=== PATIENT | male | born 1985 | race Caucasian/White ===

== ENCOUNTER 2022-11-09 15:40 | Emergency (ER) | payer OTHER ==
--- OUTSIDE RECORDS SUMMARY | 2022-11-09 15:43 | XMS REPORT | Continuity of Care Document ---
:1985 Author Organization [facility] t Address [address] [place] [id number] Care Team Providers Name Role Phone DR BLAKE BLANCO Attending Clinician Unavailable DR JELANI YAN Attending Clinician Unavailable DR BLAKE BLANCO Admitting Clinician Unavailable DR JELANI YAN Admitting Clinician Unavailable Problems Condition Condition Condition Status Onset Resolution Last Treating Co mments Source Name Details Category Date Date Treatment Clinician Date Asthma Asthma Problem Resolve 2018-04-24 [facility] moria (disorder) (disorder) d 11:37:36 l Resolved Vevay Problem 04/24/2018 [facility] Allergies, Adverse Reactions, Alerts This patient has no known allergies or adverse reactions. Social History Smoking Status Start Date Stop Date Source Social History 2017-12-16 19:43:38 [facility] Medications Ordered Filled Start Stop Current Ordering Indication Dosage Frequency Signature Comments Components Source Medication Medication Date Date Medication? Clinician (SIG) Name Name 200 ACTUAT Yes 1 puff, Henok joseluis Albuterol 4-09 INHALER, l 0.09 20:49: Q4H, PRN Antonio MG/ACTUAT 00 for Metered wheezing, Dose # 8.5 gm, Inhaler 0 [ProAir Refill(s), HFA] Pharmacy: [id number] naproxen No 375 mg = 1 Mem oria 375 mg oral 4-09 tab, PO, l tablet 20:49: BID, X 14 Boni n 00 day, # 28 tab, 0 Refill(s), Pharmacy: [id number] { Yes See Memoria (Methylpred 4-09 Instructio l nisolone 4 20:49: ns, PO, Herm adriana MG Oral 00 Take by Tablet mouth as [Medrol]) } directed Pack on label., [Medrol # 1 Pack, Dosepak] 0 Refill(s), Pharmacy: [id number] Vital Signs Vital Name Observation Time Observation Value Comments Source Weight 2017-12-16 19:30:00 Bri Alvarez BMI Calculated 2017-12-16 19:30:00 Memflaquito Galindo Height 2017-12-16 19:30:00 180.75 cm Bri Alvarez Heart Rate 2017-12-16 19:30:00 Bri Alvarez Respitory Rate 2017-12-16 19:30:00 Memori al Vevay Systolic (mm Hg) 2017-12-16 19:30:00 Henok riawillian Vevay Diastolic (mm Hg) 2017-12-16 19:30:00 Mem orial Vevay Procedures This patient has no known procedures. Encounters Start End Encounter Admission Attending Care Care Encounter Source Date/Time Date/Time Type Type Clinicians Facility Department ID 2018-10-18 2018-10-18 Outpatient Soni BLANCO [facility] [id number] [place] 19:15:00 20:19:00 BLAKE [facility] 2018-10-03 2018-10-03 Outpatient Son[facility] [id number] [facility] 2017-12-30 2017-12-30 Ambulatory nullFlavo [facility] [id number] Memoria 14:45:00 14:45:00 Pre-Reg r Medicine El 01 willian Alvarez 2017-12-30 2017-12-30 Outpatient [facility] [id number] Memoria 09:45:00 09:45:00 01 willian Alvarez 2017-12-30 2017-12-30 Outpatient [facility] [id number] 09:45:00 09:45:00 2017-12-16 2017-12-17 Outpatient nullFlavo [facility] [id number] Memoria 19:00:00 04:59:59 r Medicine El 00 willian Alvarez 2017-12-16 2017-12-16 Outpatient [facility] [id number] 14:00:00 23:59:59 00 2017-12-16 2017-12-16 Outpatient [facility] [id number] 14:00:00 23:59:59 00 2017-12-16 2017-12-16 Outpatient [facility] [id number] Memoria 14:00:00 14:00:00 00 l Antonio Results This patient has no known results.
[2022-11-09] MEDS ORDERED: NA CHLORIDE 0.9% 1,000 ML ONE (16:29)
[2022-11-09 16:59] LABS: Absolute Lymphocytes (CBC) 2.1 K/uL (0.7-4.9); Hematocrit 39.9 % (39.6-49.0); MCV 89.5 fL (80-100); MPV 7.4 fL (7.6-11.3); RBC Red Blood Cell Count 4.46 M/uL (4.33-5.43)
[2022-11-09 17:01] LABS: Protime INR 1.18
[2022-11-09 17:16] LABS: Potassium 3.5 mmol/L (3.5-5.1)
[2022-11-09] MEDS ORDERED: VANCOMYCIN 1 GM/VIAL ONE (17:48)
[2022-11-09] MEDS ORDERED: NA CHLORIDE 0.9% 100 ML ONE (17:49)
[2022-11-09] MEDS ORDERED: CEFEPIME 1 GM/VIAL ONE (17:49)
[2022-11-09] MEDS ORDERED: NA CHLORIDE 0.9% 250 ML ONE (17:49)
[2022-11-09] MEDS ORDERED: SMZ./TMP. 800/160 MG TABLET ONE (18:03)
--- NOTE | 2022-11-09 18:21 | EDPHYS ---
Physician Documentation [facility] Name: Daniele Dumont Age: 37 yrs Sex: Male : 1985 Arrival Date: 11/09/2022 Time: 15:44 Bed 11 Private MD: ED Physician Ollie Delgado HPI: 11/09 15:55 This 37 yrs old Male presents to ER via Unassigned with complaints of Infected finger. cp 15:55 The patient or guardian reports swelling, tenderness, erythema. cp 15:55 The complaints affect the left middle finger and left hand and left arm. Context: cp Patient reports noticed blister form on left middle finger after using bleach yesterday, increasing redness from left middle finger to left arm axilla. Onset: The symptoms/episode began/occurred yesterday, and became worse today. Associated signs and symptoms: Pertinent negatives: fever. Historical: - Allergies: 16:07 No Known Allergies; ld1 - Home Meds: 16:07 None [Active]; ld1 - PMHx: 16:07 None; ld1 - PSHx: 16:07 None; ld1 - Immunization history:: Adult Immunizations up to date, Client reports receiving the 2nd dose of the Covid vaccine. - Social history:: Smoking status: Patient reports the use of cigarette tobacco products, denies chronic smoking, but will smoke occasionally, Patient/guardian denies using alcohol. ROS: 16:00 Constitutional: Negative for body aches, chills, fever, poor PO intake. cp 16:00 Eyes: Negative for injury, pain, redness, and discharge. cp 16:00 ENT: Negative for drainage from ear(s), ear pain, sore throat, difficulty swallowing, difficulty handling secretions. 16:00 Cardiovascular: Negative for chest pain. 16:00 Respiratory: Negative for cough, shortness of breath, wheezing. 16:00 Abdomen/GI: Negative for abdominal pain, nausea, vomiting, and diarrhea. 16:00 Skin: Positive for cellulitis, erythema, of the left hand. 16:00 Neuro: Negative for altered mental status, headache, numbness, weakness. 16:00 All other systems are negative. Exam: 16:05 Constitutional: The patient appears in no acute distress, alert, awake, cp non-diaphoretic, non-toxic, well developed, well nourished. 16:05 Head/Face: Normocephalic, atraumatic. cp 16:05 Eyes: Periorbital structures: appear normal, Conjunctiva: normal, no exudate, no injection, Sclera: no appreciated abnormality, Lids and lashes: appear normal, bilaterally. 16:05 ENT: External ear(s): are unremarkable, Nose: is normal, Mouth: Lips: moist, Oral mucosa: moist, Posterior pharynx: Airway: no evidence of obstruction, patent. 16:05 Chest/axilla: Inspection: normal. 16:05 Cardiovascular: Rate: tachycardic, Rhythm: regular. 16:05 Respiratory: the patient does not display signs of respiratory distress, Respirations: normal, no use of accessory muscles, no retractions, labored breathing, is not present, Breath sounds: are clear throughout, no decreased breath sounds, no stridor, no wheezing. 16:05 Abdomen/GI: Inspection: abdomen appears normal, Palpation: abdomen is soft and non-tender, in all quadrants. 16:05 Back: pain, is absent, ROM is normal. cp 16:05 Musculoskeletal/extremity: Extremities: noted in the left hand: erythema, swelling of cp left middle finger that advances proximally to left arm axilla, mild tenderness along flexor tendon of left middle finger, full AROM of left middle finger. 16:05 Neuro: Orientation: to person, place \T\ time. Mentation: is normal. 17:18 ECG was reviewed by the Attending Physician. cp Vital Signs: 16:06 BP 134 / 91; Pulse 102; Resp 18; Temp 98.2(O); Pulse Ox 97% on R/A; Weight 70.31 kg; ld1 Height 6 ft. 0 in. (182.88 cm); Pain 3/10; 17:23 BP 148 / 81; Pulse 105; Resp 20; Pulse Ox 99% on R/A; Pain 2/10; mb9 16:06 Body Mass Index 21.02 (70.31 kg, 182.88 cm) ld1 MDM: 16:09 Patient medically screened. cp 17:56 Data reviewed: vital signs, nurses notes, lab test result(s), EKG. Consideration of cp Admission/Observation Escalation of care including admission/observation considered. ED course: Discussed results of today's labs and recommendation of IV antibiotics and admission. Patient requesting outpatient treatment with oral antibiotics. 11/09 16:18 Order name: Basic Metabolic Panel cp 11/09 16:18 Order name: CBC with Diff cp 11/09 16:18 Order name: PT-INR cp 11/09 16:18 Order name: EKG; Complete Time: 16:19 cp 11/09 16:18 Order name: Cardiac monitoring; Complete Time: 16:20 cp 11/09 16:18 Order name: EKG - Nurse/Tech; Complete Time: 17:19 cp 11/09 16:18 Order name: IV Saline Lock; Complete Time: 16:54 cp 11/09 16:18 Order name: Labs collected and sent; Complete Time: 16:54 cp 11/09 16:18 Order name: O2 Per Protocol; Complete Time: 16:20 cp 11/09 16:18 Order name: O2 Sat Monitoring; Complete Time: 16:20 cp 11/09 16:18 Order name: Lactate w/ 2H reflex if indic. cp 11/09 16:18 Order name: Procalcitonin cp 11/09 16:18 Order name: Blood Culture Adult (2) cp 11/09 17:01 Order name: Protime (+INR); Complete Time: 17:03 EDMS 11/09 17:11 Order name: CBC with Automated Diff; Complete Time: 17:35 EDMS 11/09 17:36 Interpretation: Normal except: MPV 7.4. cp 11/09 17:16 Order name: Basic Metabolic Panel; Complete Time: 17:35 EDMS 11/09 17:36 Interpretation: Normal except: NA 131. cp 11/09 17:35 Order name: Procalcitonin; Complete Time: 17:37 EDMS 11/09 17:37 Interpretation: Reviewed. cp 11/09 17:46 Order name: Lactate w/ 2H reflex if indic. EDMS EC:18 Rate is 90 beats/min. Rhythm is regular. HI interval is normal. QRS interval is normal. cp QT interval is normal. T waves are Inverted. Interpreted by me. Reviewed by me. Administered Medications: 16:22 Not Given (Patient Refused): morphine 2 mg IVP once over 4 mins mb9 16:22 Not Given (Patient Refused): Zofran (Ondansetron) 4 mg IVP once; over 2 minutes mb9 16:54 Drug: NS 0.9% 1000 ml Route: IV; Rate: 1 bolus; Site: right forearm; mb9 18:05 Follow up: Response: No adverse reaction; IV Status: Completed infusion mb9 17:55 Not Given (Physician Discretion): vancoMYCIN 1 grams IVPB once over 2 hrs cp 17:55 Drug: Cefepime 1 grams Route: IVPB; Rate: 200 ml/hr; Infused Over: 30 mins; Site: right mb9 forearm; 18:05 Drug: Bactrim (trimethoprim-sulfamethoxazole) (160 mg-800 mg (DS) 2 tablet Route: PO; mb9 Disposition: 19:06 Co-signature as Attending Physician, Ollie Delgado DO I was immediately available on-site ms3 in the Emergency Department for consultation in the care of the patient. Disposition Summary: 11/09/22 18:21 Discharge Ordered Location: Home cp Problem: new cp Symptoms: have improved cp Condition: Stable cp Diagnosis - Cellulitis and acute lymphangitis of other parts of limb - left hand and left arm cp Followup: cp - With: Emergency Department - When: As needed - Reason: Worsening of condition Discharge Instructions: - Discharge Summary Sheet cp - Cellulitis, Adult cp - Lymphangitis, Adult cp Forms: - Medication Reconciliation Form cp - Thank You Letter cp - Antibiotic Education cp - Prescription Opioid Use cp Prescriptions: - Ibuprofen 800 mg Oral Tablet - take 1 tablet by ORAL route every 8 hours As needed take with food; 30 tablet; cp Refills: 0, Product Selection Permitted - Bactrim DS 800-160 mg Oral Tablet - take 1 tablet by ORAL route every 12 hours for 10 days; 20 tablet; Refills: 0, cp Product Selection Permitted - Doxycycline Monohydrate 100 mg Oral Tablet - take 1 tablet by ORAL route every 12 hours for 10 days; 20 tablet; Refills: 0, cp Product Selection Permitted Signatures: Dispatcher [employer] EDLan Rees PA PA cp Ollie Delgado DO DO ms3 Smitha Kiser RN RN ld1 Aide Nguyen RN RN mb9
--- NOTE | 2022-11-09 18:21 | ER ---
Nurse's Notes [facility] [place], [place] Name: Daniele Dumont Age: 37 yrs Sex: Male : 1985 Arrival Date: 11/09/2022 Time: 15:44 Bed 11 Private MD: Diagnosis: Cellulitis and acute lymphangitis of other parts of limb-left hand and left arm Presentation: 11/09 16:06 Chief complaint: Patient states: blister to left middle finger - yesterday it opened ld1 up. Today redness and swelling traveling up left hand and wrist. Coronavirus screen: At this time, the client does not indicate any symptoms associated with coronavirus-19. Ebola Screen: No symptoms or risks identified at this time. Initial Sepsis Screen: Does the patient meet any 2 criteria? No. Patient's initial sepsis screen is negative. Does the patient have a suspected source of infection? No. Patient's initial sepsis screen is negative. Risk Assessment: Do you want to hurt yourself or someone else? Patient reports no desire to harm self or others. Onset of symptoms was November 09, 2022 at 16:06. 16:06 Method Of Arrival: Ambulatory ld1 16:06 Acuity: ALEX 4 ld1 Triage Assessment: 16:07 General: Appears in no apparent distress. comfortable, Behavior is calm, cooperative, ld1 appropriate for age. Pain: Complains of pain in left hand Pain does not radiate. Pain currently is 3 out of 10 on a pain scale. Quality of pain is described as throbbing. EENT: No signs and/or symptoms were reported regarding the EENT system. Neuro: Level of Consciousness is awake, alert, obeys commands, Oriented to person, place, time, situation. Cardiovascular: Capillary refill < 3 seconds Patient's skin is warm and dry. Respiratory: Airway is patent Respiratory effort is even, unlabored. Derm: Skin temperature is warm. Historical: - Allergies: 16:07 No Known Allergies; ld1 - Home Meds: 16:07 None [Active]; ld1 - PMHx: 16:07 None; ld1 - PSHx: 16:07 None; ld1 - Immunization history:: Adult Immunizations up to date, Client reports receiving the 2nd dose of the Covid vaccine. - Social history:: Smoking status: Patient reports the use of cigarette tobacco products, denies chronic smoking, but will smoke occasionally, Patient/guardian denies using alcohol. Screenin:34 [facility] ED Fall Risk Assessment (Adult) History of falling in the last 3 months, mb9 including since admission No falls in past 3 months (0 pts) Confusion or Disorientation No (0 pts) Intoxicated or Sedated No (0 pts) Impaired Gait No (0 pts) Mobility Assist Device Used No (0 pt) Altered Elimination No (0 pt) Score/Fall Risk Level 0 - 2 = Low Risk Oriented to surroundings, Maintained a safe environment, Educated pt \T\ family on fall prevention, incl call for assistance when getting out of bed. Abuse screen: Denies threats or abuse. Nutritional screening: No deficits noted. Tuberculosis screening: No symptoms or risk factors identified. Assessment: 16:17 General: Appears in no apparent distress. Behavior is calm, cooperative. Pain: mb9 Complains of pain in left hand Pain radiates to left arm Pain currently is 3 out of 10 on a pain scale. Quality of pain is described as aching, Pain began suddenly, Is continuous. Neuro: Level of Consciousness is awake, alert, obeys commands, Oriented to person, place, time, situation, Appropriate for age. Cardiovascular: Capillary refill < 3 seconds is brisk Patient's skin is warm and dry. Respiratory: Airway is patent Respiratory effort is even, unlabored, Respiratory pattern is regular, symmetrical, Breath sounds are clear bilaterally. GI: Abdomen is flat, non-distended. : No signs and/or symptoms were reported regarding the genitourinary system. EENT: No signs and/or symptoms were reported regarding the EENT system. Derm: Skin is intact, is healthy with good turgor, Skin is dry, Skin is normal, Skin temperature is warm wound on left middle finger. Red rash starts in left hand and radiates to left arm and armpit. Musculoskeletal: Range of motion: intact in all extremities. 17:23 Reassessment: second set of blood cultures sent. mb9 Vital Signs: 16:06 BP 134 / 91; Pulse 102; Resp 18; Temp 98.2(O); Pulse Ox 97% on R/A; Weight 70.31 kg; ld1 Height 6 ft. 0 in. (182.88 cm); Pain 3/10; 17:23 BP 148 / 81; Pulse 105; Resp 20; Pulse Ox 99% on R/A; Pain 2/10; mb9 16:06 Body Mass Index 21.02 (70.31 kg, 182.88 cm) ld1 ED Course: 15:44 Patient arrived in ED. mr 15:45 Lan Rebollar PA is PHCP. cp 15:45 Ollie Delgado DO is Attending Physician. cp 16:07 Triage completed. ld1 16:07 Arm band placed on right wrist. ld1 16:13 Aide Nguyen, THEA is Primary Nurse. mb9 16:35 Initial lab(s) drawn, by pa, sent to lab. First set of blood cultures drawn. Inserted tm3 saline lock: 20 gauge in right forearm, using aseptic technique. 16:54 Basic Metabolic Panel Sent. mb9 16:54 CBC with Diff Sent. mb9 16:54 PT-INR Sent. mb9 17:19 EKG done, by ED staff. tm3 17:23 Blood Culture Adult (2) Sent. mb9 18:34 No provider procedures requiring assistance completed. IV discontinued, intact, mb9 bleeding controlled, No redness/swelling at site. Pressure dressing applied. Administered Medications: 16:22 Not Given (Patient Refused): morphine 2 mg IVP once over 4 mins mb9 16:22 Not Given (Patient Refused): Zofran (Ondansetron) 4 mg IVP once; over 2 minutes mb9 16:54 Drug: NS 0.9% 1000 ml Route: IV; Rate: 1 bolus; Site: right forearm; mb9 18:05 Follow up: Response: No adverse reaction; IV Status: Completed infusion mb9 17:55 Not Given (Physician Discretion): vancoMYCIN 1 grams IVPB once over 2 hrs cp 17:55 Drug: Cefepime 1 grams Route: IVPB; Rate: 200 ml/hr; Infused Over: 30 mins; Site: right mb9 forearm; 18:05 Drug: Bactrim (trimethoprim-sulfamethoxazole) (160 mg-800 mg (DS) 2 tablet Route: PO; mb9 Medication: 18:34 VIS not applicable for this client. mb9 Outcome: 18:21 Discharge ordered by . cp 18:44 Discharged to home ambulatory. mb9 18:44 Condition: stable 18:44 Discharge instructions given to patient, Instructed on discharge instructions, follow up and referral plans. Demonstrated understanding of instructions, follow-up care, medications, Prescriptions given X 3. 18:44 Patient left the ED. mb9 Signatures: Rashawn Alfredo3 Aide Chong Corey, PA PA cp Dibbern, Lauren RN RN ld1 Aide Nguyen RN RN mb9
[2022-11-09 19:05] VITALS: TEMP 98.2
[2022-11-09 19:06] VITALS: BP 148/81; O2SAT 99
--- NOTE | 2022-11-12 16:48 | EKG ---
Test Date: 2022-11-09 Test Time: 17:13:20 Communications Department Chairperson: ELIO MEASUREMENT RESULTS: Intervals: Rate: 90 VA: 134 QRSD: 100 QT: 368 QTc: 450 [place]: P: 80 VA: 134 QRS: 86 T: 57 INTERPRETIVE STATEMENTS: Normal sinus rhythm Normal ECG No previous ECG available for comparison Electronically Signed On 11-12-22 16:40:00 BANK CONSULTANT by Aníbal Bucio
== END 2022-11-09 18:44 | disposition home or self-care (01) ==
LOC: ER 15:40
DX: L03.114 Cellulitis of left upper limb (principal); L03.124 Acute lymphangitis of left upper limb
CPT/HCPCS: 96361; 87040 ×2; 85025; 80048; 36415; 85610; 83605; 84145; 96374; 99284; J3370; J7050; J7030; J0692; 93005